=== PATIENT | female | born 1965 | race Native Hawaiian/Other Pacific Islander ===

== ENCOUNTER 2023-06-14 17:36 | Emergency (ER) | payer OTHER ==
[~2023-06-14] VITALS: Ht 162.6 cm; Wt 69.4 kg
[2023-06-14 17:36] VITALS: BP 150/72; TEMP 98.2
[2023-06-14 18:25] LABS: PLATELET COUNT 258 K/uL (152-353)
[2023-06-14 18:36] LABS: POTASSIUM 4.2 mmol/L (3.6-5.2)
[2023-06-15] MEDS ORDERED: DULO30CA PO (09:01)
[2023-06-15] MEDS ORDERED: QUETIAPINE50 MG PO (09:01)
[2023-06-15] MEDS ORDERED: BUPROPION HYDR100 M2 PO (09:02)
[2023-06-15] MEDS ORDERED: SALINE NASAL0.65 % NAS (09:03)
[2023-06-15] MEDS ORDERED: CRESTOR5 MG PO (09:04)
[2023-06-15] MEDS ORDERED: MYRBETRIQ50 MG PO (09:04)
[2023-06-15] MEDS ORDERED: MIRALAX17 GM PO (09:05)
[2023-06-15] MEDS ORDERED: GABA400C2 PO (09:05)
[2023-06-15] MEDS ORDERED: DOK100 MG PO (09:06)
[2023-06-15] MEDS ORDERED: ARTIFICIAL TEAR1.4 % OPTH (09:08)
[2023-06-15] MEDS ORDERED: ALBU90AE13 INH (09:09)
[2023-06-15] MEDS ORDERED: ACETAMINOPHEN PO (09:09)
[2023-06-15] MEDS ORDERED: QUET25TA2 PO (09:12)
[2023-06-23] MEDS ORDERED: ALBU90AE13 INH (08:29)
[2023-06-23] MEDS ORDERED: Atorvastatin Calcium PO (08:29)
[2023-06-23] MEDS ORDERED: DOCU100C10 PO (08:29)
[2023-06-23] MEDS ORDERED: GABA400C2 PO (08:30)
[2023-06-23] MEDS ORDERED: Artificial Tears 0.2 OPTH (08:30)
[2023-06-23] MEDS ORDERED: BLOOMIS59 PO (08:30)
[2023-06-23] MEDS ORDERED: MIRALAX 17GM PAK PO (08:31)
[2023-06-23] MEDS ORDERED: QUET25TA2 PO (08:31)
[2023-06-23] MEDS ORDERED: [UNRECOGNIZED DRUG - CODE] NAS (08:31)
== END 2023-06-14 19:00 | disposition other institution (70) ==
LOC: ED 17:36
PROVIDERS: Family Medicine
DX: F29 Unspecified psychosis not due to a substance or known physiological condition (principal); Z02.79 Encounter for issue of other medical certificate
CPT/HCPCS: 36415; 80053; 85027; 87635; 99283; U0003